=== PATIENT | male | born 1980 ===

== ENCOUNTER 2016-03-20 23:55 | Emergency (ER) | payer OTHER ==
[~2016-03-20] VITALS: Ht 170.2 cm; Wt 91.0 kg
[2016-03-20 23:59] VITALS: Ht 170.2 cm; Wt 91.0 kg
--- NOTE | 2016-03-21 00:51 | RADRPT ---
PROCEDURE: XR Left Wrist. CLINICAL INDICATION: Trauma. Pain. TECHNIQUE: AP, lateral and oblique views of the left wrist were performed. COMPARISON: No prior studies are available for comparison. FINDINGS: No acute fracture is identified. Joint relationships are maintained. Bone mineralization is within normal limits. Soft tissues are unremarkable. IMPRESSION: 1. No acute abnormality. RPTAT: [facility] .Rinku Haynes MD, Date Time Electronically viewed and signed by .Rinku Haynes MD, on 03/21/2016 00:51 .K/
--- NOTE | 2016-03-21 00:51 | RADRPT ---
PROCEDURE: XR Forearm. CLINICAL INDICATION: Trauma. Pain. TECHNIQUE: AP and lateral views of the left forearm were obtained. COMPARISON: No prior studies are available for comparison. FINDINGS: There is no fracture. Joint relationships are maintained. Bone mineralization is within normal moore its. Soft tissues are unremarkable. IMPRESSION: 1. Unremarkable left forearm x-ray series. RPTAT: [facility] .Rinku Haynes MD, Date Time Electronically viewed and signed by .Rinku Haynes MD, on 03/21/2016 00:50 .K/
[2016-03-21] MEDS ORDERED: IBUP-1542 PO (01:00)
[2016-03-21 01:10] VITALS: BP 130/91; PULSE 85; RESP 16
--- NOTE | 2016-03-21 01:10 | ERD ---
ER Documentation Chief Complaint Date/Time DATE: 03/21/16 TIME: 01:07 Chief Complaint fell off bed x 3 days ago, c/o left wrist pain HPI 35-year-old male who actually fell from his bed 3 days ago and landed on his left wrist. He now has pain in the left wrist. He applied an Rk wrap and has been taking Tylenol to control his pain. Pain is 5 out of 10 currently. Denies any numbness or tingling. Denies any head injury or KO. Patient has not come in until today because he thought the pain would get better. ROS All systems reviewed and are negative except as per history of present illness. Medications Home Meds Active Scripts Ibuprofen* (Ibuprofen*) 600 Mg Tablet, 600 MG PO Q6, #30 TAB Prov:KEELEY NAVARRETE PA-C 03/21/16 Allergies Allergies: Coded Allergies: No Known Drug Allergies (Verified Allergy, Unknown, 03/20/16) PMhx/Soc Medical and Surgical Hx: pt denies Medical Hx History of Surgery: Yes (Right knee sx) Anesthesia Reaction: No Hx Neurological Disorder: No Hx Respiratory Disorders: No Hx Cardiac Disorders: No Hx Psychiatric Problems: No Hx Miscellaneous Medical Probl: No Hx Alcohol Use: No Hx Substance Use: No Hx Tobacco Use: Yes Smoking Status: Current every day smoker FmHx Family History: No diabetes Physical Exam Vitals Vital Signs Date Time Temp Pulse Resp B/P Pulse Ox O2 Delivery O2 Flow Rate FiO2 03/20/16 23:59 98.1 89 20 159/93 98 Physical Exam General: well developed, well nourished, alert, nontoxic, no distress Head: normocephalic, atraumatic Neck: Supple, nontender, no lymphadenopathy, no midline tenderness Respiratory: Clear to auscaultation bilaterally, speaks in full sentences, no use of accesory muscles or labored breathing, no rales, ronchi, or wheezing Cardiovascular: RRR, No murmurs Back: no midline tenderness, no step offs or bony abnormalities, sensation to light touch in tact Extremities: left upper extremity: Mild tenderness to palpation over the distal two thirds wrist with mild soft tissue swelling, no bony abnormalities, radial pulse 2+, full range of motion the wrist, able to make a fist, able to oppose thumb to all fingers, capillary refill less than 2 seconds, Procedures/MDM Patient fell onto his left upper extremity 3 days ago. No head injury or KO. He is neurovascular intact. X-rays of forearm and wrist were unremarkable. Patient was placed in a Velcro wrist splint for comfort and given prescription for ibuprofen and a copy of radiology reports we can follow with primary care. Recommended this patient follow up with her primary care doctor within 48 hours or return to the emergency room for any worsening of symptoms. However this time I do believe there is suitable for outpatient management. I answered all their questions and they agreed with the plan and were discharged home. Departure Diagnosis: Primary Impression: Wrist sprain Condition: Stable Patient Instructions: Wrist Sprain Additional Instructions: Call your primary care doctor TOMORROW for an appointment during the next 1-2 days.See the doctor sooner or return here if your condition worsens before your appointment time. KEELEY NAVARRETE PA-C Mar 21, 2016 01:10
== END 2016-03-21 01:12 | disposition home or self-care (01) ==
LOC: FTE 23:55
DX: S63.502A Unspecified sprain of left wrist, initial encounter (principal); F17.210 Nicotine dependence, cigarettes, uncomplicated; W06.XXXA Fall from bed, initial encounter; Y92.9 Unspecified place or not applicable
CPT/HCPCS: 73090